=== PATIENT | male | born 1960 | race Caucasian/White ===

== ENCOUNTER 2017-05-07 08:41 | Day surgery (SDC) | payer OTHER ==
[~2017-05-07 08:41] MED LIST: Lactated Ringers 1,000 ML IV SCH
--- NOTE | 2017-05-07 09:04 | PCM.PREANE ---
Preanesthetic Assessment - Anesthesia/Transfusion/Family Hx Anesthesia History: Prior Anesthesia Without Reaction Family History of Anesthesia Reaction: No Transfusion History: No Prior Transfusion(s) - Review of Systems General: No Symptoms Pulmonary: No Symptoms Cardiovascular: No Symptoms Gastrointestinal: Nausea, Vomiting Neurological: No Symptoms Other: Reports: None - Physical Assessment NPO Status Date: 05/06/17 Height: 1.73 m Weight: 79.379 kg ASA Class: 2 Mental Status: Alert & Oriented x3 Airway Class: Mallampati = 1 Dentition: Reports: Normal Dentition ROM/Head Extension: Full Lungs: Clear to Auscultation, Normal Respiratory Effort Cardiovascular: Regular Rate, Regular Rhythm - Allergies Allergies/Adverse Reactions: Allergies Allergy/AdvReac Type Severity Reaction Status Date / Time No Known Allergies Allergy Verified 04/18/17 10:21 - Anesthesia Plan Pre-Op Medication Ordered: None - Acknowledgements Anesthesia Type Planned: MAC Pt an Appropriate Candidate for the Planned Anesthesia: Yes Alternatives and Risks of Anesthesia Discussed w Pt/Guardian: Yes Pt/Guardian Understands and Agrees with Anesthesia Plan: Yes Additional Comments: pmh: chronic pain - on oxy, gerd, smoker, thyroid replacement PreAnesthesia Questionnaire HEENT History: Reports: Other (See Below) Other HEENT History: upper partial Respiratory History: Gastrointestinal History: Reports: GERD Musculoskeletal History: Reports: Back Pain, Chronic - Past Surgical History Head Surgeries/Procedures: Reports: None GI Surgical History: Reports: Cholecystectomy, Colonoscopy Neurological Surgical History: Reports: Lumbar Spine Other Neurological Surgeries/Procedures: hx back surgery - SUBSTANCE USE Smoking Status *Q: Current Every Day Smoker Tobacco Use Within Last Twelve Months: Cigarettes Recreational Drug Use History: No - HOME MEDS Home Medications: Home Meds Lactobacillus Acidophilus [Acidophilus] 1 tab PO ASDIRECTED 05/03/17 [History] Pantoprazole Sodium 40 mg PO DAILY 05/03/17 [History] fentaNYL [Duragesic] 1 patch TRDERM ASDIRECTED 05/03/17 [History] levETIRAcetam [Keppra Xr] 750 mg PO BEDTIME 05/03/17 [History] oxyCODONE HCl [Oxycodone HCl] 10 mg PO ASDIRECTED PRN 05/03/17 [History] - CURRENT (IN HOUSE) MEDS Current Meds: Current Medications Lactated Ringer's (Ringers, Lactated) 1,000 mls @ 125 mls/hr IV ASDIRECTED LUCILLE
[2017-05-07] MEDS ORDERED: Ondansetron 4 MG/2 ML SDV ONE (09:09)
[2017-05-07] MEDS ORDERED: Propofol 200 MG/20 ML SDV ONE (09:09)
[2017-05-07] MEDS ORDERED: fentaNYL 100 MCG/2 ML SDV ONE (09:10)
[2017-05-07] MEDS ORDERED: Midazolam 1 MG/ML 2 ML SDV ONE (09:10)
--- NOTE | 2017-05-07 09:58 | PCM.OPNOTE ---
- General Post-Op/Procedure Note Date of Surgery/Procedure: 05/07/17 Operative Procedure(s): colonoscopy Findings: see dict [id number] Pre Op Diagnosis: hx of colon polyp Post-Op Diagnosis: hemorrhoid Anesthesia Technique: Moderate Sedation Primary Surgeon: Hitesh Gonzales Complications: None Condition: Good
--- NOTE | 2017-05-07 10:30 | PCM48HPAN ---
Post Anesthesia Note - EVALUATION WITHIN 48HRS OF ANESTHETIC Vital Signs in Normal Range: Yes Patient Participated in Evaluation: Yes Respiratory Function Stable: Yes Airway Patent: Yes Cardiovascular Function Stable: Yes Hydration Status Stable: Yes Pain Control Satisfactory: Yes Nausea and Vomiting Control Satisfactory: Yes Mental Status Recovered: Yes
--- NOTE | 2017-05-07 10:30 | PCM.POSTAN ---
POST ANESTHESIA ASSESSMENT - MENTAL STATUS Mental Status: Alert, Oriented - RESPIRATORY Respiratory Status: Respiratory Rate WNL, Airway Patent, O2 Saturation Stable - CARDIOVASCULAR CV Status: Pulse Rate WNL, Blood Pressure Stable - GASTROINTESTINAL GI Status: No Symptoms - POST OP HYDRATION Hydration Status: Adequate & Stable
[2017-05-07 11:06] VITALS: BP 121/76
--- NOTE | 2017-05-07 13:16 | OR ---
SURGEON: Hitesh Gonzales MD DATE OF PROCEDURE: 05/07/2017 PREOPERATIVE DIAGNOSIS: History of colon polyp. POSTOPERATIVE DIAGNOSIS: Hemorrhoids. PROCEDURE PERFORMED: Colonoscopy. FINDINGS: 1. The patient is easily sedated with SURVEILLANCE [employer] TECHNICIAN and Diprivan. The patient is soundly snoring. 2. The patient's bowel prep was suboptimum. This is a compromised study. Large amount of bubbles, no semiformed stool, but large amount of bubbles coating the mucosa, so it is a compromised study. The patient's colon is rather straight forward. Cecum indicated by ileocecal fold and one-to-one indentation and appendiceal orifice. Light immittance is not observed. We do have to turn the patient on his back to finish the scope. Mucosa examined. Upon scope pulling out with constant irrigation and the patient does not have diverticulosis, polyp, mass, growth, inflammation, stricture, AV malformation, ulceration, bleeding, none of those. The patient has mild internal hemorrhoids. No external hemorrhoids. The patient would benefit from a repeat colonoscopy in 10 years from today or if clinically indicated otherwise. PROCEDURE IN DETAIL: The patient was taken to the endoscopy room. A time out was called, patient identified, and procedure identified. Diprivan was then administrated. Patient went from awake to sleep, hearing doctor talking or door closing is normal. Perineum inspection and digital examination were then performed. A well- lubricated colonoscope was gently inserted through the rectum, advanced past the rectosigmoid junction, the descending colon, splenic flexure, transverse colon, hepatic flexure, ascending colon, arrived to the cecum. Cecum was identified as dictated in the finding. Then the scope was carefully withdrawn while attention was paid to the mucosal surface for any abnormality. Air will be sucked out during the scope withdrawal. At the rectum, retroflexed to examine any rectal diseases, fistula or hemorrhoids. Patient tolerated procedure well. There were no intraoperative complications, and Dr. Gonzales was present throughout the whole procedure. As always, thank you for the kind referral. BECKA / AKASH /[id number]
== END 2017-05-07 10:30 | disposition home or self-care (01) ==
LOC: MW.SDS 08:41
PROVIDERS: ATTEND Surgery
DX: Z12.11 Encounter for screening for malignant neoplasm of colon (principal); K64.8 Other hemorrhoids; Z86.010 Personal history of colon polyps; K21.9 Gastro-esophageal reflux disease without esophagitis; Z90.49 Acquired absence of other specified parts of digestive tract; Z98.890 Other specified postprocedural states; F17.210 Nicotine dependence, cigarettes, uncomplicated
CPT/HCPCS: 45378; J2250; J2405; J3010; J7120; 00810; J2704

== ENCOUNTER 2020-12-24 08:40 | Emergency (ER) | payer OTHER ==
--- NOTE | 2020-12-24 09:25 | EDM.PDOC ---
ED HPI GENERAL MEDICAL PROBLEM - General Chief Complaint: Lower Extremity Injury/Pain Stated Complaint: LFT FOOT PAIN Time Seen by Provider: 12/24/20 09:18 Source of Information: Reports: Patient History Limitations: Reports: No Limitations - History of Present Illness INITIAL COMMENTS - FREE TEXT/NARRATIVE: Patient is a 60-year-old male who presents today for left foot pain. Patient states that he dropped a wrench on his foot about a year ago. Patient that he did not seek medical attention and felt fine initially. Patient is down for the past few weeks has been getting tingling in the toes on his left foot. Patient denies any swelling bruising or other complaints. Patient denies any other injuries. Left Foot Pain Score (Numeric/FACES): 3 - Related Data Allergies Allergy/AdvReac Type Severity Reaction Status Date / Time No Known Allergies Allergy Verified 12/24/20 08:53 Home Meds: Home Meds Lactobacillus Acidophilus [Acidophilus] 1 tab PO ASDIRECTED 05/03/17 [History] Pantoprazole Sodium 40 mg PO DAILY 05/03/17 [History] fentaNYL [Duragesic] 1 patch TRDERM ASDIRECTED 05/03/17 [History] levETIRAcetam [Keppra Xr] 750 mg PO BEDTIME 05/03/17 [History] oxyCODONE HCl [Oxycodone HCl] 10 mg PO ASDIRECTED PRN 05/03/17 [History] Past Medical History HEENT History: Reports: Other (See Below) Other HEENT History: upper partial Gastrointestinal History: Reports: GERD Musculoskeletal History: Reports: Back Pain, Chronic - Infectious Disease History Infectious Disease History: Reports: Chicken Pox - Past Surgical History Head Surgeries/Procedures: Reports: None GI Surgical History: Reports: Cholecystectomy, Colonoscopy Neurological Surgical History: Reports: Lumbar Spine Other Neurological Surgeries/Procedures: hx back surgery Social & Family History - Tobacco Use Tobacco Use Status *Q: Never Tobacco User - Caffeine Use Caffeine Use: Reports: Energy Drinks, Soda - Recreational Drug Use Recreational Drug Use: No Review of Systems - Review of Systems Review Of Systems: See Below Constitutional: Reports: No Symptoms Eyes: Reports: No Symptoms Ears: Reports: No Symptoms Nose: Reports: No Symptoms Mouth/Throat: Reports: No Symptoms Respiratory: Reports: No Symptoms Cardiovascular: Reports: No Symptoms GI/Abdominal: Reports: No Symptoms Genitourinary: Reports: No Symptoms Musculoskeletal: Reports: Foot Pain Skin: Reports: No Symptoms Neurological: Reports: No Symptoms Psychiatric: Reports: No Symptoms ED EXAM, GENERAL - Physical Exam Exam: See Below Exam Limited By: No Limitations General Appearance: Alert, WD/WN, No Apparent Distress Respiratory/Chest: No Respiratory Distress, Lungs Clear Cardiovascular: Normal Peripheral Pulses, Regular Rate, Rhythm Peripheral Pulses: 2+: Radial (L), Femoral (L) Extremities: Normal Inspection, Normal Range of Motion, Non-Tender Neurological: Alert, Oriented, CN II-XII Intact, Normal Cognition Course - Vital Signs Last Recorded V/S: Last Vital Signs Temp 98.2 F 12/24/20 08:55 Pulse 64 12/24/20 10:18 Resp 16 12/24/20 10:18 BP 136/79 12/24/20 10:18 Pulse Ox 95 12/24/20 10:18 - Re-Assessments/Exams Free Text/Narrative Re-Assessment/Exam: 12/24/20 10:31 Patient x-ray negative. Patient will be discharged follow-up with primary care physician. Departure - Departure Time of Disposition: 10:31 Disposition: Home, Self-Care 01 Condition: Good Clinical Impression: Foot pain - Discharge Information *PRESCRIPTION DRUG MONITORING PROGRAM REVIEWED*: Not Applicable *COPY OF PRESCRIPTION DRUG MONITORING REPORT IN PATIENT LIBERTY: Not Applicable Instructions: Foot Sprain Referrals: Iraj Ding NP [Primary Care Provider] - Forms: ED Department Discharge Additional Instructions: The following information is given to patients seen in the emergency department who are being discharged to home. This information is to outline your options for follow-up care. We provide all patients seen in our emergency department with a follow-up referral. The need for follow-up, as well as the timing and circumstances, are variable depending upon the specifics of your emergency department visit. If you don't have a primary care physician on staff, we will provide you with a referral. We always advise you to contact your personal physician following an emergency department visit to inform them of the circumstance of the visit and for follow-up with them and/or the need for any referrals to a consulting specia list. The emergency department will also refer you to a specialist when appropriate. This referral assures that you have the opportunity for follow-up care with a specialist. All of these measure are taken in an effort to provide you with optimal care, which includes your follow-up. Under all circumstances we always encourage you to contact your private physician who remains a resource for coordinating your care. When calling for follow-up care, please make the office aware that this follow-up is from your recent emergency room visit. If for any reason you are refused follow-up, please contact the [facility] Emergency Department at and asked to speak to the emergency department charge nurse. Please follow up with your primary care physician. If you do not have a primary care physician, see below: [facility] [address] [place] [address] [id number] [facility] [address] [place] [address] You were seen today for pain to your left foot. The injury you had happened over a year ago we did the x-ray did not show any fractures. We are not sure was causing this tingling may be related to nerve pain. We do recommend that you follow-up with your primary care physician as it may relate to your back pain which he has had for some time. Sepsis Event Note (ED) - Evaluation Sepsis Screening Result: No Definite Risk - Focused Exam Vital Signs: Vital Signs Temp Pulse Resp BP Pulse Ox 12/24/20 10:18 64 16 136/79 95 12/24/20 08:55 98.2 F 76 18 133/64 98 - Assessment/Plan Plan: Patient is a 58-year-old male who presents today for left foot pain after suffering an injury over a year ago. There is no signs of swelling or tenderness on exam we will likely obtain x-ray and discharge home.
--- NOTE | 2020-12-24 10:29 | CR ---
INDICATION: Left foot pain after dropping power tool. TECHNIQUE: Three views of the left foot. FINDINGS: Bones in appropriate alignment. Joint spaces are preserved. Lisfranc joints are normally aligned. There are no significant degenerative changes. No fractures are identified. Small enthesophytes are noted on the calcaneus. Soft tissues are unremarkable. IMPRESSION: No acute fracture or dislocation. Dictated by Gavin Burciaga MD @ 12/24/2020 10:28:[address] Gavin Burciaga @ Dec 24 2020 10:28AM
[2020-12-24 11:01] VITALS: BP 125/58; PULSE 63
== END 2020-12-24 10:43 | disposition home or self-care (01) ==
LOC: MW.ED 08:40
DX: M79.672 Pain in left foot (principal); K21.9 Gastro-esophageal reflux disease without esophagitis; Z79.899 Other long term (current) drug therapy
CPT/HCPCS: 73630-26-LT; 73630-LT; 99282; 99283-25

== ENCOUNTER 2024-04-08 15:22 | Emergency (ER) | payer OTHER ==
[2024-04-08 17:59] VITALS: BP 141/61; PULSE 61
== END 2024-04-08 18:01 | disposition home or self-care (01) ==
LOC: MW.ED 15:22
DX: L60.0 Ingrowing nail (principal); I10 Essential (primary) hypertension; E78.00 Pure hypercholesterolemia, unspecified; F17.210 Nicotine dependence, cigarettes, uncomplicated; Z90.49 Acquired absence of other specified parts of digestive tract; Z79.899 Other long term (current) drug therapy; Z75.8 Other problems related to medical facilities and other health care
CPT/HCPCS: 73660-26-TA; 73660-TA; 99283